=== PATIENT | male | born 1960 | race Caucasian/White ===

== ENCOUNTER 2019-11-25 01:38 | Emergency (ER) | payer OTHER ==
[2019-11-25] MEDS ORDERED: NORMAL SALINE 1000 ML 1,000 ML IV ONE (01:43)
[2019-11-25] MEDS ORDERED: KETOROLAC TROMETHAMINE INJ/PF 30 MG/1 ML SDV IV ONE (01:45)
[2019-11-25] MEDS ORDERED: LORAZEPAM INJ 2 MG/1 ML VIAL IV ONE (01:50)
--- NOTE | 2019-11-25 01:58 | ER Document Report ---
Entered by PABLO GOINS SCRIBE 11/25/19 0143 Acting as scribe for:WILLIAN DELUCA IV, MD ED General - General Chief Complaint: Other Stated Complaint: POSSIBLE LOW LEVEL ELECTROCUTION Primary Care Provider: ZACHARY FERNANDEZ MD [COMMUNITY BASED STAFF] - Follow up as needed Mode of Arrival: Medic Information source: Patient, Emergency Med Personnel Notes: This 59 year old male patient brought in by EMS presents to the ED today with complaints of a possible electrocution that occurred prior to arrival. According to EMS, the patient was changing the blade direction on the ceiling fan when he suddenly felt dizzy, lightheaded, shaky, and had lower extremity weakness. EMS reports that the patient noted that he didn't feel a shock. They state that the patient was was pale and AAOx4 upon their arrival. EMS states that the patient reported an "out of body experience." Patient states that he feels "really jacked up" and reports a headache. EMS states that the patient had x1 vomiting episode so they administered 4 mg Zofran. EMS reports increased agitation, but denies loss of consciousness. - Related Data Allergies/Adverse Reactions: No Known Allergies Allergy (Unverified 11/25/19 02:07) Past Medical History - Social History Smoking Status: Never Smoker Cigarette use (# per day): No Chew tobacco use (# tins/day): No Smoking Education Provided: No Frequency of alcohol use: Occasional Family History: Reviewed & Not Pertinent Patient has suicidal ideation: No Patient has homicidal ideation: No Review of Systems - Review of Systems Constitutional: See HPI, Other - Shaky EENT: No symptoms reported Cardiovascular: See HPI, Dizziness, Lightheaded Respiratory: No symptoms reported Gastrointestinal: See HPI, Nausea, Vomiting Genitourinary: No symptoms reported Male Genitourinary: No symptoms reported Musculoskeletal: No symptoms reported Skin: No symptoms reported Hematologic/Lymphatic: No symptoms reported Neurological/Psychological: See HPI, Weakness - Lower extremity, Headaches Physical Exam - Vital signs Vitals: Resp Pulse Ox 19 90 L 11/25/19 01:44 11/25/19 01:44 - General General appearance: Alert, Anxious - HEENT Head: Normocephalic, Atraumatic Eyes: Normal Pupils: PERRL - Respiratory Respiratory status: No respiratory distress Chest status: Nontender Breath sounds: Normal Chest palpation: Normal - Cardiovascular Rhythm: Regular Heart sounds: Normal auscultation Murmur: No - Abdominal Inspection: Normal Distension: No distension Bowel sounds: Normal Tenderness: Nontender - Abdomen soft Organomegaly: No organomegaly - Back Back: Normal, Nontender - Extremities General upper extremity: Normal inspection General lower extremity: Normal inspection - Neurological Neuro grossly intact: Yes - Psychological Associated symptoms: Anxious - Skin Skin Temperature: Warm Skin Moisture: Dry Skin Color: Pale Skin irregularity: other - Patient does have a pallor, but there are no dendritic duffy consistent with acute electrocution Course - Re-evaluation Re-evalutation: 11/25/19 03:21 Results of ED MSE discussed with patient. All questions were answered prior to discharge. Patient states she is feeling better and less "jumpy" at this time. Patient states he is able to feel his fingertips again. Emergency signs and symptoms, reasons to return to the emergency department discussed with patient. - Vital Signs Vital signs: Temp Pulse Resp BP Pulse Ox 98.3 F 17 129/75 H 94 11/25/19 01:46 11/25/19 02:01 11/25/19 02:01 11/25/19 02:01 - Laboratory Result Diagrams: 11/25/19 01:46 11/25/19 01:46 Laboratory results interpreted by me: 11/25/19 11/25/19 01:46 01:46 Hgb 17.1 H Sodium 136.5 L Creatinine 1.28 H Est GFR (MDRD) Non-Af 57 L Glucose 112 H - EKG Interpretation by Me Additional EKG results interpreted by me: 11/25/19 03:22 EKG obtained on 11/25/2019 at 0 145 was interpreted by this MD. Findings: Sinus rhythm, rate 94, normal axis, P waves proceed QRS complexes, incomplete right bundle branch block is present, there are no obvious patterns of ST segment elevation or depression present to suggest acute myocardial injury or ischemia. Impression: Sinus rhythm with incomplete right bundle branch block and nonspecific ST segments. Discharge - Discharge Clinical Impression: Electrical accident caused by domestic wiring and appliances Qualifiers: Encounter type: initial encounter Qualified Code(s): W86.0XXA - Exposure to domestic wiring and appliances, initial encounter Condition: Good Disposition: HOME, SELF-CARE Additional Instructions: Return to the Emergency Department without delay if any worse. HOME CARE INSTRUCTIONS & INFORMATION: Thank you for choosing us for your medical needs. We hope you're satisfied with the care you received. After you leave, you must properly care for your problem and, at the same time, observe its progress. Any condition can change. Some illnesses can change rapidly over hours or days. If your condition worsens, return to the Emergency Department or see your physician promptly. ABOUT YOUR X-RAYS AND EKG'S: If you had an EKG or X-rays taken, they have been read by the Emergency Physician. The X-rays and EKG's will also be read by a Radiologist or Viscosity Inspector within 24 hours. If discrepancies are noted, you will be notified by telephone. Please be certain the ED has a correct telephone number & address where you can be reached. Also, realize that some fractures or abnormalities do not show up on initial X-rays. If your symptoms continue, see your physician. ABOUT YOUR LABORATORY TEST: If you had laboratory tests, the results have been reviewed by the Emergency Physician. Some test results (for example cultures) may not be available for several days. You will be contacted if any test result shows you need additional treatment. Please be certain the ED has a correct telephone number and address where you can be reached. ABOUT YOUR MEDICATIONS: You will receive instructions on how to take your medicine on the prescription label you receive. Additional information may be provided by the Pharmacy. If you have questions afterwards, call the ED for clarification or further instructions. Some prescribed medications may cause drowsiness. Do not perform tasks such as driving a car or operating machinery without consulting your Pharmacist. If you feel you need a refill of pain medication, your condition will need re-evaluation. Please do not call for a refill of any medication. ABOUT YOUR SIGNATURE: Signature of this document acknowledges to followin. Understanding that you received emergency treatment and that you may be released before al medical problems are known or treated. Please be certain the ED has a correct phone number & address where you can be reached. 2. Acknowledgement that you will arrange for follow-up care as recommended. 3. Authorization for the Emergency Physician to provide information to your follow-up Physician in order to maximize your care. AT ANY TIME, IF YOUR SYMPTOMS CHANGE SIGNIFICANTLY OR WORSEN OR YOU DEVELOP NEW SYMPTOMS, RETURN TO THE EMERGENCY DEPARTMENT IMMEDIATELY FOR RE-EVALUATION. OUR GOAL IS TO PROVIDE EXCELLENT MEDICAL CARE! WE HOPE THAT WE HAVE MET YOUR EXPECTATIONS DURING YOUR EMERGENCY DEPARTMENT VISIT AND THAT YOU FEEL YOU HAVE RECEIVED EXCELLENT CARE! Electrical Injury Electrical shocks vary greatly in severity. The history of the exposure, plus the physician's exam, determines the likelihood of internal injury. The most severe injuries are caused by high-voltage lines. As the electricity passes through the body, muscle and nerve tissues are "cooked." Hospitalization is usually required unless the injury was simply a "flash" in which electricity did not actually enter the body. Household current (110 volt) rarely causes internal injury to nerves and muscles. Household shocks are dangerous because the current can cause ventricular fibrillation. Contreras occur at the site of the shock, but these are treated in much the same way as thermal contreras. Therefore, if the heart did not stop due to electrocution, the victim is usually treated as an outpatient. Call the doctor or return for examination at any time if there is numbness, increasing pain or swelling, or signs of infection. Referrals: ZACHARY FERNANDEZ MD [COMMUNITY BASED STAFF] - Follow up as needed I personally performed the services described in the documentation, reviewed and edited the documentation which was dictated to the scribe in my presence, and it accurately records my words and actions.
[2019-11-25 02:03] LABS: ABSOLUTE BASOPHILS # (AUTO) 0.1 10^3/uL (0.0-0.2); ABSOLUTE EOSINOPHILS # (AUTO) 0.1 10^3/uL (0.0-0.6); ABSOLUTE LYMPHOCYTES (AUTO) 1.4 10^3/uL (0.5-4.7); ABSOLUTE MONOCYTES (AUTO) 0.5 10^3/uL (0.1-1.4); ABSOLUTE NEUT (AUTO) 5.9 10^3/uL (1.7-8.2); BASOPHILS % (AUTO) 0.8 % (0-2); EOSINOPHILS % (AUTO) 1.8 % (0-6); HEMATOCRIT 49.8 % (37.9-51.0); HEMOGLOBIN 17.1 g/dL (13.5-17.0); LYMPHOCYTES % (AUTO) 17.7 % (13-45); MEAN CORPUSCULAR HEMOGLOBIN 30.8 pg (27.0-33.4); MEAN CORPUSCULAR HGB CONC 34.3 g/dL (32.0-36.0); MEAN CORPUSCULAR VOLUME 90 fl (80-97); MONOCYTES % (AUTO) 6.5 % (3-13); PLATELET COUNT 265 10^3/uL (150-450); RED BLOOD COUNT 5.54 10^6/uL (4.35-5.55); SEGMENTED NEUTROPHILS % (AUTO) 73.2 % (42-78); TOTAL CELLS COUNTED % (AUTO) 100 %
[2019-11-25 02:16] VITALS: BP 129/75
[2019-11-25 02:20] LABS: ALBUMIN 3.6 g/dL (3.5-5.0); ALKALINE PHOSPHATASE 43 U/L (38-126); ANION GAP 8 (5-19); ASPARTATE AMINO TRANSFERASE 29 U/L (17-59); BILIRUBIN,DIRECT 0.2 mg/dL (0.0-0.4); BILIRUBIN,TOTAL 0.5 mg/dL (0.2-1.3); BLOOD UREA NITROGEN 12 mg/dL (7-20); CALCIUM 8.8 mg/dL (8.4-10.2); CARBON DIOXIDE 26 mmol/L (22-30); CHLORIDE 103 mmol/L (98-107); CREATINE KINASE 101 U/L (55-170); GLUCOSE 112 mg/dL (75-110); POTASSIUM 4.8 mmol/L (3.6-5.0); TOTAL PROTEIN 6.7 g/dL (6.3-8.2)
[2019-11-25 02:29] LABS: ALCOHOL < 10 mg/dL (NONE DETECTED)
--- NOTE | 2019-11-25 03:15 | RADIOLOGY REPORT (SQ) ---
EXAM DESCRIPTION: [facility]: CT HEAD WITHOUT IV CONTRAST CLINICAL HISTORY: 59 years Male; ams; TECHNIQUE: Noncontrast CT head. All CT scans at this facility use dose modulation, iterative reconstruction, and/or weight based dosing when appropriate to reduce radiation dose to as low as reasonably achievable. COMPARISON: None. FINDINGS: Alcantar matter, white matter, ventricles, and cisterns are within normal limits. No acute hemorrhage or mass effect. Visualized portions of paranasal sinuses and mastoids are clear. Visualized portions of the calvarium are within normal limits. IMPRESSION: 1. No acute intracranial findings.
--- NOTE | 2019-11-26 11:01 | EKG REPORT ---
SEVERITY:- ABNORMAL ECG - SINUS RHYTHM INCOMPLETE RBBB AND LAFB : Confirmed by: Chan Jimenez 26-Nov-2019 11:01:41
== END 2019-11-25 05:05 | disposition home or self-care (01) ==
LOC: ER 01:38
DX: R42 Dizziness and giddiness (principal); M62.81 Muscle weakness (generalized); R51 Headache; R45.1 Restlessness and agitation; R11.2 Nausea with vomiting, unspecified; F41.9 Anxiety disorder, unspecified; R23.1 Pallor; W86.0XXA Exposure to domestic wiring and appliances, initial encounter
CPT/HCPCS: 93005; 99285; 96361; 96374; 96375; 36415; 80307; 82550; 85025; 80053; 84484; 70450; 93010; J1885; J2060; J7030